=== PATIENT | female | born 1935 | race Caucasian/White ===

== ENCOUNTER → 2017-11-03 | Outpatient (CLI) | payer MEDICARE ==
[~2017-11-03] MED LIST: ALENDRONATE SOD70 MG PO; ASPIR 8181 MG PO; CALTRATE 600 W1 EACH PO; CENTRUM SILVER1 EAC3 PO; FERROUS SULFAT134 MG PO; LISINOPRIL2.5 MG PO; METRONIDAZOLE500 MG PO; PAROXETINE HCL20 MG PO; PRAVASTATIN SOD40 MG PO; VITAMIN C500 M1 PO; ZINC50 MG PO
--- NOTE | 2017-11-03 14:17 | Diagnostic Imaging Report ---
EXAM: DXA BONE DENSITY INDICATIONS: Age-related osteoporosis COMPARISON: Bone mineral density study 11/12/2015 and 04/29/2011. FINDINGS: Left forearm total bone mineral density (BMD) (g/cm2):0.310 Femur T-score (standard deviation relative to young adult mean BMD): -5.0 Femur Z-score (standard deviation relative to age-matched control group):-1.8 Left forearm 1/3 bone mineral density (BMD) (g/cm2):0.361 Femur T-score (standard deviation relative to young adult mean BMD): -5.6 Femur Z-score (standard deviation relative to age-matched control group):-2.3 Lumbar bone mineral density (BMD) (g/cm2):0.863 Lumbar T-score (standard deviation relative to young adult mean BMD): -1.7 Lumbar Z-score (standard deviation relative to age-matched control group):1.0 Change since prior exam (%): Forearm:-3.4%. Spine:-7.3%. Change since oldest prior exam (%): Forearm:-6.1% Spine:+2.5%. CONCLUSION: 1. Bone mineral density in the left forearm is classified as osteoporosis. Fracture risk is high. 2. Bone mineral density in the spine is classified as osteopenia. Fracture risk is increased. World Health Organization Classification: *The Z-score is provided for informational purposes. The T-score is preferable for clinical decisions. When comparing exams, a change of >4% is considered statistically significant. SUGGESTED RECOMMENDATIONS: Normal \T\ Osteopenia:Consideration should be given to use of calcium supplementation, daily multiple vitamins and adequate exercise, as preventive measures against osteoporosis, if clinically indicated. Osteoporosis \T\ Severe Osteoporosis:In addition to the above, consideration should be given to medical therapy against osteoporosis, if clinically indicated. Moreno Caldwell M.D. Dictated by: Moreno Caldwell M.D. on 11/03/2017 at 14:25 Electronically approved by: Moreno Caldwell M.D. on 11/03/2017 at 14:25
== END ==
LOC: MAMMO 12:37
PROVIDERS: ATTEND Family Medicine
DX: Z12.31 Encounter for screening mammogram for malignant neoplasm of breast (principal); M80.00XD Age-related osteoporosis with current pathological fracture, unspecified site, subsequent encounter for fracture with routine healing
CPT/HCPCS: 77080; G0202

== ENCOUNTER → 2018-11-03 | Outpatient (CLI) | payer MEDICARE ==
--- NOTE | 2018-11-03 15:01 | Diagnostic Imaging Report ---
EXAM: DXA BONE DENSITY INDICATIONS: OSTEOPORSIS COMPARISON: None. FINDINGS: Left forearm bone mineral density (BMD) (g/cm2):0.318 Forearm T-score (standard deviation relative to young adult mean BMD): -4.8 Forearm Z-score (standard deviation relative to age-matched control group):-1.5 Lumbar bone mineral density (BMD) (g/cm2):0.898 Lumbar T-score (standard deviation relative to young adult mean BMD): -1.4 Lumbar Z-score (standard deviation relative to age-matched control group):1.4 Change since prior exam dated 11/03/2017 (%): Forearm3.4% Spine:4% Change since oldest prior exam dated 04/29/2011 (%): Forearm-5.1% Spine:4.8% CONCLUSION: 1. Bone mineral density in the left forearm is classified as osteoporosis. Fracture risk is high. 2. Bone mineral density in the spine is classified as osteopenia. Fracture risk is increased. World Health Organization Classification: *The Z-score is provided for informational purposes. The T-score is preferable for clinical decisions. When comparing exams, a change of >4% is considered statistically significant. SUGGESTED RECOMMENDATIONS: Normal & Osteopenia:Consideration should be given to use of calcium supplementation, daily multiple vitamins and adequate exercise, as preventive measures against osteoporosis, if clinically indicated. Osteoporosis & Severe Osteoporosis:In addition to the above, consideration should be given to medical therapy against osteoporosis, if clinically indicated. Sriram Muller D.O. Dictated by: Sriram Muller D.O. on 11/03/2018 at 15:11 Electronically approved by: Sriram Muller D.O. on 11/03/2018 at 15:11
--- NOTE | 2018-11-05 16:24 | Diagnostic Imaging Report ---
#[id number] - MGSCRBIL #BILATERAL DIGITAL SCREENING MAMMOGRAM WITH CAD: 11/03/2018 CLINICAL: Routine screening. Comparison is made to exams dated: 11/03/2017 mammogram and 11/12/2015 mammogram - [facility]. Current study contains 4 films. There are scattered fibroglandular elements in both breasts. Current study was also evaluated with a Computer Aided Detection (CAD) system. There are benign vascular calcifications in both breasts. There also are benign scattered calcifications in both breasts. No significant masses, calcifications, or other findings are seen in either breast. There has been no significant interval change. IMPRESSION: BENIGN There is no mammographic evidence of malignancy. A 1 year screening mammogram is recommended. The patient will be notified by letter of the results. Sriram vogel/kee:11/05/2018 10:47:53 [employer] Supervisor: Lula SANABRIA([place])([place]), [facility] letter sent: Compared to Prior B9 Mammogram BI-RADS: 2 Benign
== END ==
LOC: MAMMO 13:38
PROVIDERS: ATTEND Family Medicine
DX: Z12.31 Encounter for screening mammogram for malignant neoplasm of breast (principal); Z13.820 Encounter for screening for osteoporosis
CPT/HCPCS: 77067; 77080

== ENCOUNTER 2021-02-07 15:59 | Inpatient (IN) | payer MEDICARE ==
[~2021-02-07] VITALS: Ht 170.2 cm; Wt 57.2 kg
[2021-02-07] MEDS ORDERED: MORPHINE SULFATE INJ 2 MG/ML SYR IV PRN (16:45)
[2021-02-07 17:05] LABS: BASOPHILS # (AUTO) 0.1 (0.0-0.1); BASOPHILS % 0.5 % (0.0-1.0); EOSINOPHILS % 0.4 % (0.0-6.0); HEMATOCRIT 35.4 % (34.2-44.1); HEMOGLOBIN 11.6 g/dL (12.0-16.0); LYMPHOCYTES # (AUTO) 1.5 (1.0-3.2); LYMPHOCYTES % 15.8 % (18.0-39.1); MEAN CORPUSCULAR HEMOGLOBIN 31.5 pg (28-32); MEAN CORPUSCULAR HGB CONC 32.8 g/dL (31-35); MEAN CORPUSCULAR VOLUME 96.2 fL (81-99); MONOCYTES # (AUTO) 0.5 (0.2-0.8); MONOCYTES % 5.1 % (4.4-11.3); NEUTROPHILS # (AUTO) 7.3 (2.1-6.9); NEUTROPHILS % 77.7 % (38.7-80.0); PLATELET COUNT 269 x10e3/uL (140-360); RED BLOOD COUNT 3.68 x10e6/uL (3.6-5.1); RED CELL DISTRIBUTION WIDTH 12.6 % (11.7-14.4)
[2021-02-07 17:21] LABS: ALANINE AMINOTRANSFERASE 9 IU/L (0-55); ALBUMIN 3.1 g/dL (3.5-5.0); ALBUMIN/GLOBULIN RATIO 0.9 (0.8-2.0); ALKALINE PHOSPHATASE 83 IU/L (40-150); ANION GAP 15.2 mmol/L (8-16); BLOOD UREA NITROGEN 14 mg/dL (7-26); BUN/CREATININE RATIO 19 (6-25); CALCIUM 8.6 mg/dL (8.4-10.2); CARBON DIOXIDE 24 mmol/L (22-29); CHLORIDE 103 mmol/L (98-107); CREATININE, SERUM 0.72 mg/dL (0.57-1.11); EST GLOMERULAR FILTRATION RATE > 60 ML/MIN (60-); GLUCOSE 94 mg/dL (74-118); POTASSIUM 4.2 mmol/L (3.5-5.1); SODIUM 138 mmol/L (136-145)
[2021-02-07 19:00] VITALS: BP 161/70
[2021-02-07 20:00] VITALS: BP 161/70
[2021-02-07] MEDS: MORPHINE SULFATE INJ 4 MG/ML INJ 1ML IV PRN (20:47)
[2021-02-07] MEDS: ONDANSETRON HCL INJ 2MG/ML 2ML 2 MG/ML VIAL IV PRN (20:48)
[2021-02-07] MEDS: SODIUM CHLORIDE 0.9% 1000ML 1,000 ML IV SCH (21:35)
[2021-02-07] MEDS ORDERED: FLOMAX0.4 MG PO (22:11)
[2021-02-07] MEDS ORDERED: ESTRADIOL0.5 MG PO (22:11)
[2021-02-07] MEDS ORDERED: PAROXETINE HCL10 MG PO (23:04)
[2021-02-07] MEDS ORDERED: FERROUS SULFAT325 MG PO (23:04)
[2021-02-07] MEDS ORDERED: DHEA50 M1 PO (23:04)
[2021-02-07] MEDS ORDERED: ASCORBIC ACID500 MG PO (23:04)
[2021-02-07] MEDS ORDERED: DOCU LIQUI50 MG/5 ML PO (23:04)
[2021-02-07] MEDS ORDERED: COENZYME Q-10200 MG PO (23:04)
[2021-02-07] MEDS ORDERED: [UNRECOGNIZED DRUG - OTHER] PO (23:13)
[2021-02-07] MEDS ORDERED: KRILL OIL 5001 EACH PO (23:13)
[2021-02-07] MEDS ORDERED: MELATONIN3 MG PO (23:13)
[2021-02-07] MEDS ORDERED: PRINIVIL20 MG PO (23:13)
[2021-02-07] MEDS ORDERED: L-CARNITINE500 MG PO (23:13)
[2021-02-07] MEDS ORDERED: PROGESTERONE100 MG PO (23:13)
[2021-02-07] MEDS ORDERED: ALPHA LIPOIC A100 MG PO (23:13)
[2021-02-07] MEDS ORDERED: VITAMIN D2 (23:13)
[2021-02-07] MEDS ORDERED: [UNRECOGNIZED DRUG - OTHER] PO (23:13)
[2021-02-07] MEDS ORDERED: TYLENOL325 MG PO (23:13)
[2021-02-07] MEDS ORDERED: VITAMIN D250 MCG PO (23:16)
[2021-02-08] VITALS (7 sets, daily range): BP systolic 133–166; BP diastolic 62–85
[2021-02-08 00:26] LABS: CREATINE KINASE MB 0.9 ng/mL (0-5.0)
[2021-02-08] MEDS: SODIUM CHLORIDE 0.9% 1000ML 1,000 ML IV SCH ×3 (04:31→15:31)
[2021-02-08 05:07] LABS: BASOPHILS % 0.5 % (0.0-1.0); EOSINOPHILS # (AUTO) 0.2 (0.0-0.4); EOSINOPHILS % 2.5 % (0.0-6.0); HEMATOCRIT 32.4 % (34.2-44.1); HEMOGLOBIN 10.4 g/dL (12.0-16.0); LYMPHOCYTES # (AUTO) 1.2 (1.0-3.2); LYMPHOCYTES % 18.8 % (18.0-39.1); MEAN CORPUSCULAR HEMOGLOBIN 31.1 pg (28-32); MEAN CORPUSCULAR HGB CONC 32.1 g/dL (31-35); MONOCYTES # (AUTO) 0.4 (0.2-0.8); MONOCYTES % 6.5 % (4.4-11.3); NEUTROPHILS # (AUTO) 4.5 (2.1-6.9); NEUTROPHILS % 71.2 % (38.7-80.0); PLATELET COUNT 227 x10e3/uL (140-360); RED BLOOD COUNT 3.34 x10e6/uL (3.6-5.1); RED CELL DISTRIBUTION WIDTH 12.7 % (11.7-14.4)
[2021-02-08 05:28] LABS: ALANINE AMINOTRANSFERASE 6 IU/L (0-55); ALBUMIN 2.7 g/dL (3.5-5.0); ALKALINE PHOSPHATASE 68 IU/L (40-150); ANION GAP 11.9 mmol/L (8-16); BLOOD UREA NITROGEN 12 mg/dL (7-26); BUN/CREATININE RATIO 18 (6-25); CALCIUM 7.6 mg/dL (8.4-10.2); CARBON DIOXIDE 24 mmol/L (22-29); CHLORIDE 106 mmol/L (98-107); CREATININE, SERUM 0.65 mg/dL (0.57-1.11); EST GLOMERULAR FILTRATION RATE > 60 ML/MIN (60-); GLUCOSE 81 mg/dL (74-118); POTASSIUM 3.9 mmol/L (3.5-5.1); SODIUM 138 mmol/L (136-145)
[2021-02-08 10:04] LABS: CREATINE KINASE MB 1.4 ng/mL (0-5.0)
[2021-02-08 12:05] LABS: CLARITY,URINE CLOUDY (CLEAR); COLOR,URINE YELLOW (YELLOW); KETONES,URINE 2+ (NEGATIVE); LEUKOCYTE ESTERASE ,URINE LARGE (NEGATIVE); NITRITE,URINE NEGATIVE (NEGATIVE); PROTEIN,URINE DIPSTICK 2+ (NEGATIVE); URINE UROBILINOGEN 1 mg/dL (0.2 - 1)
[2021-02-08 12:18] LABS: BACTERIA,URINE RARE /HPF; EPITHELIAL CELLS,URINE FEW /LPF; RBC,URINE 21-50 /HPF (0-5); WBC,URINE (MAN) 21-50 /HPF (0-5)
[2021-02-08] MEDS ORDERED: SEVOFLURANE INHAL SOLN 250 ML PEN BTL ONE (13:03)
[2021-02-08] MEDS ORDERED: PROPOFOL IV EMULSION 10 MG/ML 20 ML VIAL ONE (13:03)
[2021-02-08] MEDS ORDERED: LIDOCAINE HCL 2% LOCAL INJ 5 ML SDV VIAL INJ ONE (13:03)
[2021-02-08] MEDS ORDERED: FENTANYL CITRATE/PF 100MCG/2 ML INJ ONE (13:33)
[2021-02-08] MEDS: LEVOFLOXACIN 500 MG TAB PO SCH (15:31)
[2021-02-08] MEDS: MORPHINE SULFATE INJ 4 MG/ML INJ 1ML IV PRN (20:46)
[2021-02-08] MEDS: ONDANSETRON HCL INJ 2MG/ML 2ML 2 MG/ML VIAL IV PRN (20:46)
[2021-02-09] VITALS (8 sets, daily range): BP systolic 147–192; BP diastolic 65–87
[2021-02-09] MEDS: SODIUM CHLORIDE 0.9% 1000ML 1,000 ML IV SCH ×2 (05:20→09:45)
[2021-02-09] MEDS: METOPROLOL TARTRATE 25 MG TAB PO SCH ×2 (12:26→16:08)
[2021-02-09] MEDS: LEVOFLOXACIN 500 MG TAB PO SCH (13:48)
[2021-02-09] MEDS ORDERED: HYDRALAZINE HCL 20 MG/ML VIAL IV PRN (15:15)
[2021-02-09] MEDS: ONDANSETRON HCL INJ 2MG/ML 2ML 2 MG/ML VIAL IV PRN (20:07)
[2021-02-09] MEDS: MORPHINE SULFATE INJ 4 MG/ML INJ 1ML IV PRN (20:08)
[2021-02-10] VITALS (8 sets, daily range): BP systolic 0–151; BP diastolic 0–98
[2021-02-10] MEDS: LISINOPRIL 20 MG TAB PO SCH (09:01)
[2021-02-10] MEDS: METOPROLOL TARTRATE 25 MG TAB PO SCH ×2 (09:01→16:27)
[2021-02-10] MEDS: LEVOFLOXACIN 500 MG TAB PO SCH (13:39)
[2021-02-10] MEDS ORDERED: ALBUTEROL SULF 0.083% NEB SOLN 3 ML NEB NEB PRN (15:00)
[2021-02-11] VITALS (7 sets, daily range): BP systolic 110–155; BP diastolic 53–75
[2021-02-11] MEDS: ONDANSETRON HCL INJ 2MG/ML 2ML 2 MG/ML VIAL IV PRN (02:32)
[2021-02-11] MEDS: METOPROLOL TARTRATE 25 MG TAB PO SCH ×2 (09:00→16:52)
[2021-02-11] MEDS: FLUCONAZOLE 100 MG TAB PO SCH (09:00)
[2021-02-11] MEDS: LISINOPRIL 20 MG TAB PO SCH (09:00)
[2021-02-12 00:30] VITALS: BP 119/58
[2021-02-12 05:56] VITALS: BP 128/62
[2021-02-12 08:17] VITALS: BP 146/62
[2021-02-12 09:08] VITALS: BP 146/62
[2021-02-12] MEDS: METOPROLOL TARTRATE 25 MG TAB PO SCH ×2 (12:13→17:41)
[2021-02-12] MEDS: LISINOPRIL 20 MG TAB PO SCH (12:13)
[2021-02-12] MEDS: FLUCONAZOLE 100 MG TAB PO SCH (12:13)
[2021-02-12 12:18] VITALS: BP 151/72
[2021-02-12 16:34] VITALS: BP 123/51
[2021-02-12] MEDS ORDERED: ONDANSETRON HCL 4 MG ORAL DISINTEGRATING TAB PO PRN (17:15)
== END 2021-02-12 17:45 | DRG 467 ==
LOC: ER 16:10 → ERHOLD 16:33 → MED/SURG2 18:48
PROC: 0SW90JZ Revision of Synthetic Substitute in Right Hip Joint, Open Approach (ICD-10-PCS; principal; 2021-02-08 06:45)
DX: S73.004A Unspecified dislocation of right hip, initial encounter (principal); B37.49 Other urogenital candidiasis; M81.0 Age-related osteoporosis without current pathological fracture; W19.XXXA Unspecified fall, initial encounter; Z86.73 Personal history of transient ischemic attack (TIA), and cerebral infarction without residual deficits; E83.51 Hypocalcemia; N31.9 Neuromuscular dysfunction of bladder, unspecified; D64.9 Anemia, unspecified; R31.29 Other microscopic hematuria; R33.9 Retention of urine, unspecified; Z96.641 Presence of right artificial hip joint; Z20.822 Contact with and (suspected) exposure to COVID-19
CPT/HCPCS: 36415; 71045; 76000; 80053; 81001; 82550; 82553; 82948; 84484; 85025; 87086; 97139; 99284; J2001; J2270; J2405; J3010; J7030; U0002

== ENCOUNTER → 2021-05-03 | Outpatient (CLI) | payer MEDICARE ==
[~2021-05-03] MED LIST changes: +ALPHA LIPOIC A100 MG PO; +ASCORBIC ACID500 MG PO; +CEFTRIAXONE 1 GM VIAL ONE; +COENZYME Q-10200 MG PO; +DHEA50 M1 PO; +DOCU LIQUI50 MG/5 ML PO; +ESTRADIOL0.5 MG PO; +FENTANYL CITRATE/PF 100MCG/2 ML INJ ONE; +FERROUS SULFAT325 MG PO; +FLOMAX0.4 MG PO; +IOPAMIDOL 300MG/ML 100 ML INFUS..BTL IV ONE; +KRILL OIL 5001 EACH PO; +L-CARNITINE500 MG PO; +LIDOCAINE HCL 1% LOCAL INJ 20 ML VIAL ONE; +MELATONIN3 MG PO; +MIDAZOLAM HCL 2 MG/2 ML VIAL ONE; +PAROXETINE HCL10 MG PO; +PRINIVIL20 MG PO; +PROGESTERONE100 MG PO; +SODIUM CHLORIDE 0.9% 100 ML ONE; +SODIUM CHLORIDE 0.9% 250ML 250 ML ONE; +SODIUM CHLORIDE 0.9% 500ML 500 ML ONE; +TYLENOL325 MG PO; +VITAMIN D2; +VITAMIN D250 MCG PO; +[UNRECOGNIZED DRUG - OTHER] PO; +[UNRECOGNIZED DRUG - OTHER] PO
[2021-05-03 09:28] LABS: HEMOGLOBIN 12.5 g/dL (12.0-16.0)
[2021-05-03 09:40] LABS: INR 0.94; PARTIAL THROMBOPLASTIN TIME 37.1 seconds (23.8-35.5); PROTHROMBIN TIME 13.2 seconds (11.9-14.5)
== END ==
LOC: DX 09:03
PROVIDERS: ATTEND Urology
DX: R33.9 Retention of urine, unspecified (principal)
CPT/HCPCS: 36415; 51102; 76942; 85014; 85049; 85610; 85730; J0696; J2001; J2250; J3010; J7040; J7050 ×2; Q9967; 99152; 99153